=== PATIENT | female | born 1975 | race Caucasian/White ===

== ENCOUNTER 2016-12-08 23:27 | Emergency (ER) | payer SELFPAY ==
[2016-12-09] MEDS ORDERED: PROAIR HFA8.5 GM INH (00:42)
[2016-12-09] MEDS ORDERED: ADVAIR 25028 BLISTE1 PO (00:42)
[2016-12-09] MEDS ORDERED: AUGMENTIN 875-1 EAC2 PO (01:27)
[2017-03-28] MEDS ORDERED: IPRAT-ALBUT 0.5-3 ML INH (15:36)
[2017-03-28] MEDS ORDERED: DELTASONE20 MG PO (17:32)
[2017-03-28] MEDS ORDERED: PROAIR HFA8.5 GM INH (17:32)
== END 2016-12-09 01:45 ==
LOC: EDMED 23:27
DX: S61.451A Open bite of right hand, initial encounter (principal); I25.10 Atherosclerotic heart disease of native coronary artery without angina pectoris; J44.9 Chronic obstructive pulmonary disease, unspecified; F17.210 Nicotine dependence, cigarettes, uncomplicated; Z23 Encounter for immunization; Z79.51 Long term (current) use of inhaled steroids; Z79.899 Other long term (current) drug therapy; W54.0XXA Bitten by dog, initial encounter; Y92.019 Unspecified place in single-family (private) house as the place of occurrence of the external cause